=== PATIENT | female | born 1975 | race Caucasian/White ===

== ENCOUNTER 2023-09-23 09:06 | Emergency (ER) | payer BC ==
[~2023-09-23] VITALS: Ht 165.1 cm; Wt 63.5 kg
[2023-09-23 09:21] VITALS: BP_SYST 130; PULSE 77; RESP 18; TEMP 97.7; O2SAT 99
[2023-09-23] MEDS: HYDROcodone/ACETAMIN 5-325 MG TAB (NORCO/ VICODIN) PO ONE (09:56)
[2023-09-23 10:02] LABS: BASOPHILS % (AUTO) 0.5 % (0.0-2.0); EOSINOPHILS # (AUTO) 0.1 K/uL (0.0-0.4); EOSINOPHILS % (AUTO) 0.9 % (0.0-4.0); HEMATOCRIT 40.7 % (36-48); HEMOGLOBIN 13.8 g/dL (12.0-16.0); LYMPHOCYTES # (AUTO) 2.9 K/uL (1.0-5.5); LYMPHOCYTES % (AUTO) 28.7 % (20.5-51.5); MEAN CORPUSCULAR HEMOGLOBIN 31 pg (27-31); MEAN CORPUSCULAR HGB CONC 34 % (32-36); MEAN CORPUSCULAR VOLUME 91 fL (79.0-98.0); MONOCYTES # (AUTO) 0.5 K/uL (0.0-1.0); MONOCYTES % (AUTO) 4.6 % (1.7-9.3); NEUTROPHILS # (AUTO) 6.6 K/uL (1.8-7.7); NEUTROPHILS % (AUTO) 65.3 % (40.0-70.0); PLATELET COUNT (AUTO) 155 K/uL (130-430); RED BLOOD CELL COUNT(AUTO) 4.46 MIL/uL (4.2-6.2); RED CELL DISTRIBUTION WIDTH 12.8 % (9.0-15.0)
[2023-09-23 10:11] LABS: ERYTHROCYTE SEDIMENTATION RATE 4 MM/HR (0-20)
[2023-09-23 10:16] LABS: CALCIUM 8.7 mg/dL (8.4-11.0); CREATININE 0.7 mg/dL (0.55-1.30); POTASSIUM 3.6 mmol/L (3.5-5.1)
[2023-09-23] MEDS ORDERED: METH-776 PO (11:41)
[2023-09-23] MEDS ORDERED: ZAN4 PO (11:41)
[2023-09-23 11:50] VITALS: BP_SYST 130; PULSE 77; RESP 18; TEMP 97.7; O2SAT 99
== END 2023-09-23 11:49 | disposition home or self-care (01) ==
LOC: SED 09:06
DX: S16.1XXA Strain of muscle, fascia and tendon at neck level, initial encounter (principal); E87.0 Hyperosmolality and hypernatremia; X58.XXXA Exposure to other specified factors, initial encounter; Y93.89 Activity, other specified; Y92.89 Other specified places as the place of occurrence of the external cause; Y99.8 Other external cause status
CPT/HCPCS: 36415; 70450-TC; 80048; 83605; 85025; 85651; 87040; 99284